=== PATIENT | female | born 1955 | race Caucasian/White ===

== ENCOUNTER 2023-02-04 07:42 | Inpatient (IN) | payer MEDICARE, OTHER ==
[~2023-02-04] VITALS: Ht 162.6 cm; Wt 59.1 kg
[~2023-02-04 07:42] MED LIST: DULO-31 PO; HYDR-3972 PO; NAPR-56 PO; ZOLP5TAB8 PO
[2023-02-04] MEDS ORDERED: normal saline 1000ML IV soln IVB ONE (07:55)
[2023-02-04] MEDS ORDERED: pantoprazole 40 MG vial IV ONE (07:55)
[2023-02-04] MEDS ORDERED: ondansetron/PF 4mg/2ml inj IV ONE (07:55)
--- NOTE | 2023-02-04 07:55 | NUR ---
Dr. Gamez notified by Cheri CASTELLANOS regarding pt. status, CP , SOB and periods of non responsiveness.
[2023-02-04 08:17] LABS: BASOPHILS # (AUTO) 0.1 X10'3 (0-0.2); BASOPHILS % (AUTO) 0.7 % (0-1); EOSINOPHILS # (AUTO) 0.2 X10'3 (0-0.9); EOSINOPHILS % (AUTO) 2.6 % (0-6); HEMATOCRIT 46.8 % (35.0-45.0); LYMPHOCYTES % (AUTO) 31.9 % (21-51); MEAN CORPUSCULAR HEMOGLOBIN 31.4 PG (27.0-31.0); MEAN CORPUSCULAR HGB CONC 34.1 g/dL (33.0-36.5); MEAN PLATELET VOLUME 8.5 FL (7.4-10.4); MONOCYTES # (AUTO) 0.6 X10'3 (0-0.9); MONOCYTES % (AUTO) 6.4 % (2-12); NEUTROPHILS # (AUTO) 5.6 X10'3 (1.8-7.7); NEUTROPHILS % (AUTO) 58.4 % (42-75); PLATELET COUNT 276 X10'3 (140-440); RED BLOOD COUNT 5.09 X10'6 (4.20-5.60); RED CELL DISTRIBUTION WIDTH 12.7 % (11.5-14.5); WHITE BLOOD COUNT 9.5 X10'3 (4.5-11.0)
[2023-02-04 08:40] LABS: BILIRUBIN,URINE NEGATIVE (Neg); CLARITY,URINE CLOUDY (Clear); COLOR,URINE YELLOW (Yellow); GLUCOSE, URINE NEGATIVE (Neg); KETONES,URINE NEGATIVE (Neg); LEUKOCYTE ESTERASE ,URINE NEGATIVE (Neg); NITRITES, URINE POSITIVE (Neg); OCCULT BLOOD,URINE NEGATIVE (Neg); PROTEIN,URINE NEGATIVE (Neg); UROBILINOGEN,URINE 0.2 E.U/dL (0.2-1.0)
[2023-02-04 08:41] LABS: ALANINE AMINOTRANSFERASE 16 U/L (12-78); ALBUMIN 3.5 G/DL (3.4-5.0); ALBUMIN/GLOBULIN RATIO 0.9 (1.1-1.5); ALKALINE PHOSPHATASE 98 IU/L (46-116); ANION GAP 12 (8-16); ASPARTATE AMINO TRANSFERASE 23 U/L (10-37); BILIRUBIN,TOTAL 0.8 MG/DL (0.1-1.0); BLOOD UREA NITROGEN 7 MG/DL (7-18); BUN/CREATININE RATIO 9.5 (10.0-20.0); CALCIUM 9.4 MG/DL (8.5-10.1); CHLORIDE 102 MMOL/L (99-107); CREATININE 0.74 MG/DL (0.40-0.90); GLUCOSE 107 MG/DL (70-104); LIPASE 17 U/L (16-77); SODIUM 141 MMOL/L (135-145); TOTAL CARBON DIOXIDE 26.7 MMOL/L (24-32); TOTAL PROTEIN 7.4 G/DL (6.4-8.2); eCRCL 63 ML/MIN; eGFR 78 ML/MIN
[2023-02-04 08:44] LABS: POTASSIUM 4.1 MMOL/L (3.5-5.1)
[2023-02-04 08:47] LABS: UA COLLECTION TYPE STRAIGHT CATH
[2023-02-04 08:49] LABS: BACTERIA,URINE 4+ /HPF (Neg); RBC,URINE 0-2 /HPF (0-2); SQUAMOUS EPITHELIAL CELL,UR MODERATE /LPF (FEW); TRANSITIONAL EPI CELLS,URINE FEW /HPF; WBC CLUMPS,URINE FEW /HPF (NEGATIVE)
[2023-02-04 08:53] LABS: ETHANOL < 10 MG/DL (<10)
[2023-02-04] MEDS ORDERED: CefTRIAXone/D5W-Rocephin 1gm 50 ML IV ONE (08:55)
[2023-02-04] MEDS ORDERED: iohexol 350MG/ML 100ml bottle IV ONE (09:03)
[2023-02-04] MEDS ORDERED: ondansetron/PF 4mg/2ml inj IV PRN (12:15)
[2023-02-04] MEDS ORDERED: potassium Cl 40MEQ/1/2NS 520ml 520 ML IV PRN (12:15)
[2023-02-04] MEDS ORDERED: potassium Cl 20 mEq SR tablet PO PRN ×2 (12:15)
[2023-02-04] MEDS ORDERED: morphine 2 MG/ML inj. syringe IV PRN ×2 (12:15)
[2023-02-04] MEDS ORDERED: magnesium Cl slow-release 64mg tablet PO PRN (12:15)
[2023-02-04] MEDS ORDERED: mag hydrox/Alum hydrox/simeth 30ml oral suspension PO PRN (12:15)
[2023-02-04] MEDS ORDERED: magnesium 4gm in 100ml NS 100 ML IV PRN (12:15)
[2023-02-04] MEDS ORDERED: acetaminophen 325mg tablet PO PRN (12:15)
[2023-02-04] MEDS ORDERED: docusate sod 100mg capsule PO PRN (12:15)
[2023-02-04] MEDS ORDERED: magnesium hydroxide 30ml (MOM) UD suspension PO PRN (12:15)
[2023-02-04] MEDS: normal saline 1000ml 1,000 ML IV SCH (12:39)
[2023-02-04] MEDS: HYDROcodone/acetaminophen 5mg/325mg tablet PO PRN ×2 (12:47→20:43)
--- NOTE | 2023-02-04 14:51 | NUR ---
SPOKE WITH MRI. PT AWAITING TRANSPORT TO MRI.
[2023-02-04 14:58] LABS: HIV ANTIBODY 1&2 RAPID NON-REACTIVE (Neg)
[2023-02-04] MEDS ORDERED: GADOTERATE MEGLUMINE 7.5 MMOL/15 ML VIAL IV ONE (17:22)
--- NOTE | 2023-02-04 20:15 | NUR ---
periwick cath applied
--- NOTE | 2023-02-04 20:30 | NUR ---
pt requested prn pain med stating her legs hurt. pain med given. pt states she needs to pee. pt education given on periwick cath.
[2023-02-04] MEDS: heparin, porcine 5000 units/ml vial SQ SCH (20:58)
--- NOTE | 2023-02-05 02:05 | NUR ---
pt request prn pain med stating her lt leg hurts prn med given
[2023-02-05] MEDS: HYDROcodone/acetaminophen 10/325mg tab PO PRN ×3 (02:15→13:04)
[2023-02-05 06:04] LABS: BASOPHILS % (AUTO) 0.4 % (0-1); EOSINOPHILS # (AUTO) 0.2 X10'3 (0-0.9); EOSINOPHILS % (AUTO) 2.6 % (0-6); HEMOGLOBIN 12.7 g/dl (12.0-16.0); LYMPHOCYTES # (AUTO) 3.4 X10'3 (1.1-4.8); LYMPHOCYTES % (AUTO) 38.8 % (21-51); MEAN CORPUSCULAR HEMOGLOBIN 31.6 PG (27.0-31.0); MEAN CORPUSCULAR HGB CONC 34.4 g/dL (33.0-36.5); MEAN CORPUSCULAR VOLUME 91.9 FL (78-98); MEAN PLATELET VOLUME 8.1 FL (7.4-10.4); MONOCYTES # (AUTO) 0.6 X10'3 (0-0.9); MONOCYTES % (AUTO) 7.4 % (2-12); NEUTROPHILS # (AUTO) 4.4 X10'3 (1.8-7.7); NEUTROPHILS % (AUTO) 50.8 % (42-75); PLATELET COUNT 228 X10'3 (140-440); RED BLOOD COUNT 4.03 X10'6 (4.20-5.60); RED CELL DISTRIBUTION WIDTH 12.6 % (11.5-14.5); WHITE BLOOD COUNT 8.6 X10'3 (4.5-11.0)
[2023-02-05 06:22] LABS: ALANINE AMINOTRANSFERASE 12 U/L (12-78); ALBUMIN 2.6 G/DL (3.4-5.0); ALBUMIN/GLOBULIN RATIO 0.7 (1.1-1.5); ALKALINE PHOSPHATASE 71 IU/L (46-116); ANION GAP 4 (8-16); ASPARTATE AMINO TRANSFERASE 12 U/L (10-37); BILIRUBIN,TOTAL 0.4 MG/DL (0.1-1.0); BLOOD UREA NITROGEN 5 MG/DL (7-18); BUN/CREATININE RATIO 6.2 (10.0-20.0); CALCIUM 8.3 MG/DL (8.5-10.1); CHLORIDE 106 MMOL/L (99-107); CHOL/HDL RATIO 5.2 (0.00-4.99); CHOLESTEROL 188 MG/DL (0-200); CREATININE 0.81 MG/DL (0.40-0.90); GLUCOSE 91 MG/DL (70-104); HDL CHOLESTEROL 36 MG/DL (35-60); LDL CHOLESTEROL 128 MG/DL (50-100); MAGNESIUM 1.7 MG/DL (1.5-2.4); PHOSPHORUS 3.9 MG/DL (2.3-4.5); POTASSIUM 3.6 MMOL/L (3.5-5.1); SODIUM 139 MMOL/L (135-145); TOTAL CARBON DIOXIDE 28.6 MMOL/L (24-32); TOTAL PROTEIN 6.2 G/DL (6.4-8.2); TRIGLYCERIDES 100 MG/DL (20-135); eCRCL 57 ML/MIN; eGFR 70 ML/MIN
[2023-02-05 06:40] LABS: HEMOGLOBIN A1C 4.8 % (4.5-6.2)
[2023-02-05] MEDS: HYDROcodone/acetaminophen 5mg/325mg tablet PO PRN ×2 (08:03→20:03)
[2023-02-05] MEDS ORDERED: CIPR-202 PO (08:24)
[2023-02-05] MEDS ORDERED: ATOR10TA PO (08:24)
[2023-02-05] MEDS: CefTRIAXone/D5W-Rocephin 1gm 50 ML IV SCH (08:37)
[2023-02-05] MEDS: normal saline 1000ml 1,000 ML IV SCH (08:38)
--- NOTE | 2023-02-05 09:03 | NUR ---
charissa deluna unable to take report at this time
[2023-02-05 10:25] VITALS: BP 108/58; PULSE 83; RESP 15; TEMP 98.8; O2SAT 98
--- NOTE | 2023-02-05 10:37 | NUR ---
Patient in room [facility] 4011. I have received report from LENA Schuster and had the opportunity to ask questions and assume patient care.
[2023-02-05] MEDS: heparin, porcine 5000 units/ml vial SQ SCH ×2 (11:00→19:58)
[2023-02-05 18:00] VITALS: BP 139/66; PULSE 79; RESP 15; TEMP 97.8; O2SAT 99
--- NOTE | 2023-02-05 18:20 | NUR ---
Receive report from Carly CASTELLANOS. Assumed care, Pt in awake in bed at this time, no s/s of distress.
--- NOTE | 2023-02-05 18:20 | NUR ---
bladder scanned patient because she was extremely distended, uncomfortable, and 8/10 painful. Gave her morphine to help and she could not stand the taste. Both of her IV's infiltrated and have discontinued both with cannula's intact. The bladder scan read 200 after she was able to urinate as I was doing the bladder scan. Her outout for 400ml with 200 remaining.
--- NOTE | 2023-02-05 18:30 | NUR ---
Problems reprioritized. Patient report given, questions answered & plan of care reviewed with LENA Nguyen.
[2023-02-05 20:00] VITALS: RESP 15; O2SAT 99
[2023-02-05 20:20] VITALS: RESP 16; O2SAT 99
[2023-02-05 22:00] VITALS: BP 124/60; PULSE 81; RESP 18; TEMP 97.4; O2SAT 98
[2023-02-05] MEDS ORDERED: Melatonin 3mg tablet PO ONE (22:32)
--- NOTE | 2023-02-05 23:50 | NUR ---
assessment performed by myself. [employer] performed own assessment.
[2023-02-06] MEDS: HYDROcodone/acetaminophen 5mg/325mg tablet PO PRN (03:40)
[2023-02-06] MEDS: normal saline 1000ml 1,000 ML IV SCH (04:15)
[2023-02-06 06:00] VITALS: BP 141/65; PULSE 66; RESP 17; TEMP 97.8; O2SAT 94
[2023-02-06 07:00] LABS: BASOPHILS # (AUTO) 0.1 X10'3 (0-0.2); BASOPHILS % (AUTO) 0.7 % (0-1); EOSINOPHILS # (AUTO) 0.2 X10'3 (0-0.9); EOSINOPHILS % (AUTO) 2.4 % (0-6); HEMATOCRIT 37.7 % (35.0-45.0); HEMOGLOBIN 13.1 g/dl (12.0-16.0); LYMPHOCYTES # (AUTO) 3.2 X10'3 (1.1-4.8); LYMPHOCYTES % (AUTO) 39.7 % (21-51); MEAN CORPUSCULAR HEMOGLOBIN 31.6 PG (27.0-31.0); MEAN CORPUSCULAR HGB CONC 34.7 g/dL (33.0-36.5); MEAN CORPUSCULAR VOLUME 91.3 FL (78-98); MEAN PLATELET VOLUME 8.8 FL (7.4-10.4); MONOCYTES # (AUTO) 0.6 X10'3 (0-0.9); MONOCYTES % (AUTO) 7.9 % (2-12); NEUTROPHILS # (AUTO) 3.9 X10'3 (1.8-7.7); NEUTROPHILS % (AUTO) 49.3 % (42-75); PLATELET COUNT 234 X10'3 (140-440); RED BLOOD COUNT 4.13 X10'6 (4.20-5.60); RED CELL DISTRIBUTION WIDTH 12.6 % (11.5-14.5)
--- NOTE | 2023-02-06 07:00 | NUR ---
Patient in room [facility] 4011. I have received report from LENA Nguyen and had the opportunity to ask questions and assume patient care.
[2023-02-06 07:14] LABS: ALANINE AMINOTRANSFERASE 13 U/L (12-78); ALBUMIN 2.7 G/DL (3.4-5.0); ALBUMIN/GLOBULIN RATIO 0.7 (1.1-1.5); ALKALINE PHOSPHATASE 79 IU/L (46-116); ANION GAP 6 (8-16); ASPARTATE AMINO TRANSFERASE 15 U/L (10-37); BILIRUBIN,TOTAL 0.3 MG/DL (0.1-1.0); BLOOD UREA NITROGEN 4 MG/DL (7-18); BUN/CREATININE RATIO 5.9 (10.0-20.0); CALCIUM 8.7 MG/DL (8.5-10.1); CHLORIDE 103 MMOL/L (99-107); CREATININE 0.68 MG/DL (0.40-0.90); GLUCOSE 90 MG/DL (70-104); MAGNESIUM 1.7 MG/DL (1.5-2.4); PHOSPHORUS 4.2 MG/DL (2.3-4.5); POTASSIUM 3.6 MMOL/L (3.5-5.1); SODIUM 138 MMOL/L (135-145); TOTAL CARBON DIOXIDE 28.7 MMOL/L (24-32); TOTAL PROTEIN 6.6 G/DL (6.4-8.2); eCRCL 68 ML/MIN; eGFR 86 ML/MIN
[2023-02-06] MEDS: heparin, porcine 5000 units/ml vial SQ SCH (07:46)
[2023-02-06 08:00] VITALS: RESP 17; O2SAT 94
[2023-02-06 08:44] VITALS: RESP 16; O2SAT 94
[2023-02-06] MEDS: CefTRIAXone/D5W-Rocephin 1gm 50 ML IV SCH (08:44)
--- NOTE | 2023-02-06 09:00 | NUR ---
Following LENA Singh with this patient. This casualty underwriter performed their own assessment and IV ABX administration. All other aspects of care and medication administration were to be performed by the patient's primary nurse.
[2023-02-06] MEDS ORDERED: SUMAtriptan 25 MG tablet PO ONE (10:25)
[2023-02-06] MEDS ORDERED: SUMA25TA9 PO (10:28)
--- NOTE | 2023-02-06 11:36 | NUR ---
Pt stable for d/c. Patient signed all d/c paperwork. IV discontinued prior to d/c. Spouse present at bedside at time of discharge. Patient was wheeled down to lobby by one staff member and left in private vehicle with spouse to go home. D/C @ 11:30
== END 2023-02-06 11:30 | disposition home or self-care (01) | DRG 690 ==
LOC: ER 07:43 → ED HOLD 12:19 → ORTHO 4S 02-05 09:45
PROVIDERS: ADMIT Family Medicine; ATTEND Family Medicine
PROC: B32T1ZZ Computerized Tomography (CT Scan) of Left Pulmonary Artery using Low Osmolar Contrast (ICD-10-PCS; principal; 2023-02-04)
PROC: B3201ZZ Computerized Tomography (CT Scan) of Thoracic Aorta using Low Osmolar Contrast (ICD-10-PCS; 2023-02-04)
PROC: B32S1ZZ Computerized Tomography (CT Scan) of Right Pulmonary Artery using Low Osmolar Contrast (ICD-10-PCS; 2023-02-04)
DX: N39.0 Urinary tract infection, site not specified (principal); F23 Brief psychotic disorder; I82.522 Chronic embolism and thrombosis of left iliac vein; G47.00 Insomnia, unspecified; F32.A Depression, unspecified; R07.9 Chest pain, unspecified; Z20.822 Contact with and (suspected) exposure to COVID-19; I73.9 Peripheral vascular disease, unspecified; G43.909 Migraine, unspecified, not intractable, without status migrainosus; Z87.891 Personal history of nicotine dependence; Z88.6 Allergy status to analgesic agent; Z91.018 Allergy to other foods; Z79.899 Other long term (current) drug therapy; Z98.891 History of uterine scar from previous surgery
CPT/HCPCS: 36415; 70450; 70553; 71045; 71275; 74174; 80053; 80061; 80320; 81001; 82140; 82607; 82948; 83036; 83605; 83690; 83735; 84100; 84443; 84484; 85025; 86592; 86703; 87040; 87077; 87081; 87088; 87186; 87811; 96365; 96375; 97116; 97161; 97530; 99285; A4353; A9575; C9113; G0378; J0696; J1644; J2270; J2405; J3490; J7030; Q9967